=== PATIENT | female | born 1955 | race Caucasian/White ===

== ENCOUNTER → 2017-01-18 | Outpatient (CLI) | payer MEDICAID ==
[~2017-01-18] MED LIST: AMLODIPINE BESY10 M1 PO; ESTRADIOL1 M1 PO; FUROSEMIDE 40MG40 M1 PO; HYDROCODON-ACETAMINO PO; ISOSORBIDE MONO60 M1 PO; MELOXICAM15 MG PO; METOPROLOL SUCC25 M2 PO; NEXIUM40 MG PO; NITROGLYCERIN0.4 MG SL; OLANZAPINE5 M1 PO; OMEPRAZOLE20 MG PO; PREDNISONE 20MG20 MG PO; RANITIDINE300 MG PO; SERTRALINE 100100 MG PO; TRAZODONE HCL50 MG PO; TRIAMTERENE-HCTZ 37. PO; VENTOLIN H0.09 MG/Ac IH
[2017-01-18 14:19] LABS: HEMOGLOBIN 12.6 g/dL (12.2-16.2); LYMPH # 0.9 K/mm3 (0.7-4.5); LYMPH % 25.2 % (10-50.0)
[2017-01-18 14:33] LABS: BUN 8 mg/dL (7-18)
[2017-01-18 14:51] LABS: GFR (ESTIMATED) 73 ML/MIN (59-)
== END ==
LOC: CARL-LAB 08:21
PROVIDERS: Internal Medicine
DX: E11.42 Type 2 diabetes mellitus with diabetic polyneuropathy (principal); I10 Essential (primary) hypertension; I49.5 Sick sinus syndrome; E78.5 Hyperlipidemia, unspecified; E66.01 Morbid (severe) obesity due to excess calories; J44.9 Chronic obstructive pulmonary disease, unspecified

== ENCOUNTER 2017-08-23 11:09 | Emergency (ER) | payer MEDICAID ==
[~2017-08-23] VITALS: Ht 152.4 cm; Wt 95.3 kg
--- OUTSIDE RECORDS SUMMARY | 2017-08-23 11:15 | External Medical Summary Rpt | CCD ---
Demographics Home Phone Preferred Language Cymro Marital Status Unknown Presybeterian Affiliation Unknown Race Unknown Ethnic Group Unknown Author Author , ANGEL Organization ANGEL Address Unknown Phone [email or web address] Immunization Name Date Rout CVX Reac Dose Comm Prov Is Faci e tion ent ider Refu lity Give sed n Infl 08-2 Intr 140 0.5 Hist [facility] No WALM uenz 7-20 amus mL oric ART4 ART4 a, 16 cula al 93 93 P-Fr r Info ee rmat ion - Sour ce Unsp ecif ied
--- OUTSIDE RECORDS SUMMARY | 2017-08-23 11:15 | External Medical Summary Rpt | CCD ---
Author Author Conduent Organization Conduent Address Unknown Phone Unavailable Purpose Continuity of Care Document - through 2016
--- OUTSIDE RECORDS SUMMARY | 2017-08-23 11:15 | External Medical Summary Rpt | CCD ---
Author Author , ANGEL Organization MARISELOMAR Address Unknown Phone [email or web address] Care Team Providers Care Glass Tinter Name Role Phone Marques Gaytan MD, Unavailable Unavailable Marques Gaytan MD Purpose Continuity of Care Document - 11-05-2013 through 2016 Problems Code Diagnosis DOS Provider Status 305.1 305.1 11-05-2013 [place] TOBACCO USE [facility] 708.0 708.0 11-05-2013 [place] ALLERGIC [facility] Allergies, Adverse Reactions, Alerts Type Allergy to substance Drug Allergy Adverse Reaction to Substance Substance Reaction Severity PARAFORMFORTE Unknown Unknown Celecoxib I-HIVES Intermediate Cod Liver Oil [id number]/THROAT Severe Medications Na ND Rx Da Fi Fi Am Da Di Ph RX Ph St me C No te ll ll ou ys ag ar # ys at rm s nt no ma ic us Or Da si cy ia de te s n re d DI 00 02 0 No PH 40 -1 EN 92 7- Lo HY [address] 03 14 er AM 1 IN Ac E ti 50 ve MG /M L SY RN G De 00 02 0 No xa 51 -1 me 74 7- Lo th 90 20 ng as 12 14 er on 5 e Ac 4M ti G/ ve Ml Sd v Vital Signs 11-05-2013 21:02 Name Value Interpretat Reference Comment ion Range Body 98.4 [degF] Temperature BP 88 mm[Hg] Diastolic BP Systolic 155 mm[Hg] Heart 58 /min Rate/Pulse O2% 97 % Respiratory 20 /min Rate Encounters Encounter Start End Date Code Location Performer Type Date Emergency ABEL Gaytan MD (ER) 4 20:45 4 21:03 [facility]
--- OUTSIDE RECORDS SUMMARY | 2017-08-23 11:15 | External Medical Summary Rpt ---
Author Author MARISELOMAR Walker, ANGEL Production Organization ANGEL [employer] Address Unknown Phone Unavailable Results CBC W Auto Differential panel in Blood Observa Value Referen Units Interpr Notes Date tion ce etation Range Basophils 0 - 0.2 K/MM3 Normal No Mar 282016 [#/volume on in 10:08 AM ] in source Blood by data Automated count Basophils 0.1 - 2.0 % Normal No Mar 282016 leukocyte on in 10:08 AM s in source Blood by data Automated count Eosinophi 0.0 - 0.4 K/mm3 Normal No Mar 28 ls 2016 [#/volume on in 10:08 AM ] in source Blood by data Automated count Eosinophi 0.1 - % Normal No Mar 28 ls/100 12.0 2016 leukocyte on in 10:08 AM s in source Blood by data Automated count Granulocy 1.8 - 7.8 K/mm3 Normal No Mar 28 melissa 2016 [#/volume on in 10:08 AM ] in source Blood by data Automated count Granulocy 37.0 - % Normal No Mar 28 melissa/100 80.0 2016 leukocyte on in 10:08 AM s in source Blood by data Automated count Hematocri 37.0 - % Normal No Mar 28 t [Volume 47.0 2016 on in 10:08 AM Fraction] source of Blood data Hemoglobi 12.2 - g/dL Normal No Mar 28 n 16.2 2016 [Mass/vol on in 10:08 AM ume] in source Blood data Lymphocyt 0.7 - 4.5 K/mm3 Normal No Mar 28 es 2016 [#/volume on in 10:08 AM ] in source Unspecifi data ed specimen by Automated count Lymphocyt 10 - 50.0 % Normal No Mar 28 es 2016 [#/volume on in 10:08 AM ] in source Unspecifi data ed specimen by Automated count Erythrocy 27 - 31.2 pg Low No Mar 28 te mean 2016 corpuscul on in 10:08 AM ar source hemoglobi data n [Entitic mass] Erythrocy 31.8 - g/dl Low No Mar 28 te mean 35.4 2016 corpuscul on in 10:08 AM ar source hemoglobi data n concentra tion [Mass/vol ume] by Automated count Erythrocy 82.2 - fl Normal No Mar 28 te mean 97.8 2016 corpuscul on in 10:08 AM ar volume source [Entitic data volume] by Automated count Monocytes 0.1 - 1.0 K/mm3 Normal No Mar 28 inform2016 [#/volume on in 10:08 AM ] in source Blood by data Automated count Monocytes 1.7 - 9.3 % High No Mar 28 /2016 leukocyte on in 10:08 AM s in source Blood by data Automated count Platelet 7.4 - fl Normal No Mar 28 mean 10.4 2016 volume on in 10:08 AM [Entitic source volume] data in Blood by Automated count Platelets 142 - 424 K/mm3 Normal No Mar 28 informati 2016 [#/volume on in 10:08 AM ] in source Blood data Erythrocy 4.2 - 5.4 M/mm3 Normal No Mar 28 melissa informati 2016 [#/volume on in 10:08 AM ] in source Amniotic data fluid Erythrocy 11.5 - % Normal No Mar 28 te 17.5 2016 distribut on in 10:08 AM ion width source [Entitic data volume] by Automated count Leukocyte 4.8 - K/MM3 Normal No Mar 28 s 10.8 informati 2016 [#/volume on in 10:08 AM ] in source Blood data
--- OUTSIDE RECORDS SUMMARY | 2017-08-23 11:15 | External Medical Summary Rpt | CCD ---
Author Author , ANGEL Organization MARISELOMAR Address Unknown Phone [email or web address] Care Team Providers Care Supervisor Metal Placing Name Role Phone Marques Gaytan MD, Unavailable Unavailable Marques Gaytan MD Purpose Continuity of Care Document - 11-05-2013 through 2016 Problems Code Diagnosis DOS Provider Status 305.1 305.1 11-05-2013 [place] TOBACCO USE [facility] 708.0 708.0 11-05-2013 [place] ALLERGIC [facility] Allergies, Adverse Reactions, Alerts Type Allergy to substance Drug Allergy Adverse Reaction to Substance Substance Reaction Severity PARAFORMFORTE Unknown Unknown Celecoxib I-HIVES Intermediate Cod Liver Oil [id number]/THROAT Severe Medications Na ND Rx Da Fi [...] Gaytan MD (ER) 4 20:45 4 21:[address] [facility]
--- OUTSIDE RECORDS SUMMARY | 2017-08-23 11:15 | External Medical Summary Rpt | CCD ---
Demographics Home Phone Preferred Language Kuwaiti Marital Status Unknown Pentecostalism Affiliation Unknown Race Unknown Ethnic Group Unknown Author Author , ANGEL Organization ANGEL Address Unknown Phone [email or web address] Name Date Rout CVX Reac Dose Comm Prov Is Faci e tion ent ider Refu lity Give sed n Infl 08-2 Intr 140 0.5 Hist WALM No WALM uenz 7-20 amus mL oric ART4 ART4 a, 16 cula al 93 93 P-Fr r Info ee rmat ion - Sour ce Unsp ecif ied
--- NOTE | 2017-08-23 12:48 | Urgent Treatment Center Report ---
History of Present Issue Date/Time Seen by Provider 08/23/17 1243 Visit Reason Pt arrived:Walked Presenting Problem:FINISHED ANTIBIOTIC 2 DAYS AGO FOR BRONCHITIS, STILL HAS HEAD CONGESTION COUGH, SOA. Location if Accident: Onset of symptoms date/time:/ or onset unknown for:MEDICAL HX UNKNOWN Have you (or family members/close friends) recently traveled outside the [place]? N If Yes, where/when: Have you had exposure to infectious disease within the past month? TB? Other? Specify: c/o nasal congestion, rhinorrhea and productive cough. Saw Dr. Caputo. Not sure when. Prescribed antibiotic, not sure which, but hasn't noticed improvement. Demanding something else be done. Hasn't taken or tried anything other than antibiotic. Hx of HTN and DM. Doesn't know medications. [facility]. Amoxicillin 500mg capsules x2 BID x 10 days sent on . Source patient Exam Limitations no limitations ALLERGIES Coded Allergies: chlorzoxazone (From Parafon Forte DSC) (Severe, CHEST PAIN 01/02/16) cod liver oil (Severe, S-SAWOZK-CFQJ/THROAT 01/02/16) codeine (Severe, S-ANAPHYLAXIS 01/02/16) tramadol (From Ultram) (Severe, U-WQYGEO-LMHD/THROAT, HIVES 01/02/16) celecoxib (From Celebrex) (Intermediate, I-HIVES 01/02/16) Home Medications Reported Medications Estradiol 1 MG PO DAILY #30 Isosorbide Mononitrate (Isosorbide Mononitrate ER) 60 MG PO #30 Sertraline Hydrochloride (Sertraline 100MG) 100 MG PO DAILY Ranitidine Hydrochloride (Ranitidine) 300 MG PO DAILY #30 Metoprolol Succinate 25 MG PO DAILY #15 Amlodipine Besylate 10 MG PO DAILY Trazodone Hcl 50 MG PO QHSP #45 Furosemide 40 MG PO PRN PRN NEEDED FOR FLUID RETENTION #30 Meloxicam (Meloxicam 15MG) 15 MG PO BID #30 [HYDROCODON-ACETAMINO] 1 TAB PO TID #60 Albuterol Sulfate (Ventolin Hfa) 0.09 MG IH PRN PRN SHORTNESS OF AIR #18 NITROGLYCERIN (Nitrostat) 0.4 MG SL [id number] PRN CHEST PAIN Olanzapine 5 MG PO DAILY #30 Esomeprazole Magnesium (Nexium 40MG Cap) 40 MG PO DAILY #30 History Medical History General Angina: Yes [place]: Yes Hypertension? Yes Hyperlipidemia? Yes CHF? No COPD? No Asthma? Yes Hernia? No CVA? No Seizures? No Diabetes? Yes Insulin Dependent: No Insulin Pump: No Home FSBS? Yes UTI? No Stones? No GB Disease: Yes Hepatitis? Yes Cataracts? No Glaucoma? No MRSA? No TB? No Cancer? No More? No Immunization HX DT/Tetanus Unknown Flu [id number] Pneumonia RCVDINPAST Surgical Hx Previous Surgery?Y GALLBLADDER HYSTERECTOMY TONSILS LEFT ANKLE SURGERY Family History Family HX Diabetes Yes CAD Yes Hypertension Yes Hyperlipidemia Yes Cancer Yes TB No Social History Smoking Hx Smoker: Current Some Day Smoker Tobacco: Yes Type Cigarettes Packs/day < 1 Pack Alcohol Alcohol: No Review of Systems All Other Systems Reviewed and Negative Constitutional denies chills, denies fever, denies malaise Eyes denies drainage ENT nose discharge (thick). denies: ear pain, throat pain. Respiratory see HPI, denies wheezing Cardiovascular denies chest pain Musculoskeletal denies joint pain Skin denies rash Psychiatric/Neurological denies headache Physical Exam Vital Signs Vital Signs Date Time Temp Pulse Resp B/P Pulse O2 O2 Flow FiO2 Ox Delivery Rate 08/23 1149 97.9 60 20 165/64 98 General Appearance no apparent distress, obese Eye Exam - bilateral eye normal exam Ear, Nose, Throat normal ENT inspection Neck non-tender, supple Respiratory Status No: respiratory distress, use of accessory muscles, pain on inspiration, pain on expiration, productive cough, non productive cough. Lung Sounds anterior: lungs clear. posterior: lungs clear. bilateral: lungs clear. Cardiovascular regular rate/rhythm, no murmur, 2+ pitting edema cathleen feet, ankles Neurologic alert, oriented x 3 Skin normal color, warm/dry Lymphatic no adenopathy Medical Decision Making LABS/Meds/Orders Pt receiving controlled substance in ED? No Results/Orders Orders Procedure Date/time Status CHEST(2 VIEWS-NOT PORTABLE) 08/23 1247 Active XRAY/CT/US XRAY/CT/US XRAY chest XR interpretation by reviewed by me, discussed w/radiologist (via phone) Xray Results comparison December 2015; mild CHF, appears chronic, no acute findings Progress [facility] Progress Notes 1 Date 08/23/17 Time 1240 Comment pt demanding cxr, "I need something done today" [facility] Progress Notes 2 Date 08/23/17 Time 1334 Comment as pt was leaving, reports her swelling "a little worse" for the last week. Contributes it to not taking her fluid pill while running her son to all his appointments. "I have been neglecting myself to take care of him". mild SOA "but not that much". I just need to stop coughing". STRONGLY enc to follow up with Dr. Caputo and plans to call tomorrow "although I know he will kill me for not taking my medicines correctly" Departure Departure Time of Disposition 1327 Disposition DC Home or Self Care(routine) Clinical Impression Primary Impression: Cough Condition STABLE Referrals Harshal JULIO,Kimo Gomez (Family) Follow up for new or worsening symptoms. Return immediately for difficulty breathing. Patient Instructions DI for Cough -- Adult Additional Instructions sleep elevated Humidifier/vaporizer flonase 2 sprays each nostril daily Mucinex during the day for your cough and cough suppressant only at night. Be sure to drink lots of water. Insurance may not cover a prescription of mucinex. Might be cheaper to get 400mg tablets and take 2 tablets morning, midday and evening all with lots of water. tessalon perles at night as needed for cough Discharge Counseling Counseled pt/family regarding diagnosis, test results, medications/RX, home care, follow up needs Prescriptions Current Visit Scripts Benzonatate 200 MG PO QHSP PRN cough #14 SGL Fluticasone Propionate (Flonase 50 Mcg Nasal [place]) 2 SPRAY NA DAILY #1 BOT at 1333
--- NOTE | 2017-08-23 12:48 | Urgent Treatment Center Report ---
History of Present Issue Date/Time Seen by Provider 08/23/17 1243 Visit Reason Pt arrived:Walked Presenting Problem:FINISHED ANTIBIOTIC 2 DAYS AGO FOR BRONCHITIS, STILL HAS HEAD CONGESTION COUGH, SOA. Location if Accident: Onset of symptoms date/time:/ or onset unknown for:MEDICAL HX UNKNOWN Have you (or family members/close friends) recently traveled outside the [place]? N If Yes, where/when: Have you had exposure to infectious disease within the past month? TB? Other? Specify: c/o nasal congestion, rhinorrhea and productive cough. Saw Dr. Caputo. Not sure when. Prescribed antibiotic, not sure which, but hasn't noticed improvement. Demanding something else be done. Hasn't taken or tried anything other than antibiotic. Hx of HTN and DM. Doesn't know medications. [facility]. Amoxicillin 500mg capsules x2 BID x 10 days sent on . Source patient Exam Limitations no limitations ALLERGIES Coded Allergies: chlorzoxazone (From Parafon Forte DSC) (Severe, CHEST PAIN 01/02/16) cod liver oil (Severe, T-EZRLWC-YTRJ/THROAT 01/02/16) codeine (Severe, S-ANAPHYLAXIS 01/02/16) tramadol (From Ultram) (Severe, K-INCCIS-RGGQ/THROAT, HIVES 01/02/16) celecoxib (From Celebrex) (Intermediate, I-HIVES 01/02/16) Home Medications Reported Medications Estradiol 1 MG PO DAILY #30 Isosorbide Mononitrate (Isosorbide Mononitrate ER) 60 MG PO #30 Sertraline Hydrochloride (Sertraline 100MG) 100 MG PO DAILY Ranitidine Hydrochloride (Ranitidine) 300 MG PO DAILY #30 Metoprolol Succinate 25 MG PO DAILY #15 Amlodipine Besylate 10 MG PO DAILY Trazodone Hcl 50 MG PO QHSP #45 Furosemide 40 MG PO PRN PRN NEEDED FOR FLUID RETENTION #30 Meloxicam (Meloxicam 15MG) 15 MG PO BID #30 [HYDROCODON-ACETAMINO] 1 TAB PO TID #60 Albuterol Sulfate (Ventolin Hfa) 0.09 MG IH PRN PRN SHORTNESS OF AIR #18 NITROGLYCERIN (Nitrostat) 0.4 MG SL [id number] PRN CHEST PAIN Olanzapine 5 MG PO DAILY #30 Esomeprazole Magnesium (Nexium 40MG Cap) 40 MG PO DAILY #30 History Medical History General Angina: Yes [place]: Yes Hypertension? Yes Hyperlipidemia? Yes CHF? No COPD? No Asthma? Yes Hernia? No CVA? No Seizures? No Diabetes? Yes Insulin Dependent: No Insulin Pump: No Home FSBS? Yes UTI? No Stones? No GB Disease: Yes Hepatitis? Yes Cataracts? No Glaucoma? No MRSA? No TB? No Cancer? No More? No Immunization HX DT/Tetanus Unknown Flu [id number] Pneumonia RCVDINPAST Surgical Hx Previous Surgery?Y GALLBLADDER HYSTERECTOMY TONSILS LEFT ANKLE SURGERY Family History Family HX Diabetes Yes CAD Yes Hypertension Yes Hyperlipidemia Yes Cancer Yes TB No Social History Smoking Hx Smoker: Current Some Day Smoker Tobacco: Yes Type Cigarettes Packs/day < 1 Pack Alcohol Alcohol: No Review of Systems All Other Systems Reviewed and Negative Constitutional denies chills, denies fever, denies malaise Eyes denies drainage ENT nose discharge (thick). denies: ear pain, throat pain. Respiratory see HPI, denies wheezing Cardiovascular denies chest pain Musculoskeletal denies joint pain Skin denies rash Psychiatric/Neurological denies headache Physical Exam Vital Signs Vital Signs Date Time Temp Pulse Resp B/P Pulse O2 O2 Flow FiO2 Ox Delivery Rate 08/23 1149 97.9 60 20 165/64 98 General Appearance no apparent distress, obese Eye Exam - bilateral eye normal exam Ear, Nose, Throat normal ENT inspection Neck non-tender, supple Respiratory Status No: respiratory distress, use of accessory muscles, pain on inspiration, pain on expiration, productive cough, non productive cough. Lung Sounds anterior: lungs clear. posterior: lungs clear. bilateral: lungs clear. Cardiovascular regular rate/rhythm, no murmur, 2+ pitting edema cathleen feet, ankles Neurologic alert, oriented x 3 Skin normal color, warm/dry Lymphatic no adenopathy Medical Decision Making LABS/Meds/Orders Pt receiving controlled substance in ED? No Results/Orders Orders Procedure Date/time Status CHEST(2 VIEWS-NOT PORTABLE) 08/23 1247 Active XRAY/CT/US XRAY/CT/US XRAY chest XR interpretation by reviewed by me, discussed w/radiologist (via phone) Xray Results comparison December 2015; mild CHF, appears chronic, no acute findings Progress [facility] Progress Notes 1 Date 08/23/17 Time 1240 Comment pt demanding cxr, "I need something done today" [facility] Progress Notes 2 Date 08/23/17 Time 1334 Comment as pt was leaving, reports her swelling "a little worse" for the last week. Contributes it to not taking her fluid pill while running her son to all his appointments. "I have been neglecting myself to take care of him". mild SOA "but not that much". I just need to stop coughing". STRONGLY enc to follow up with Dr. Caputo and plans to call tomorrow "although I know he will kill me for not taking my medicines correctly" Departure Departure Time of Disposition 1327 Disposition DC Home or Self Care(routine) Clinical Impression Primary Impression: Cough Condition STABLE Referrals Harshal JULIO,Kimo Gomez (Family) Follow up for new or worsening symptoms. Return immediately for difficulty breathing. Patient Instructions DI for Cough -- Adult Additional Instructions sleep elevated Humidifier/vaporizer flonase 2 sprays each nostril daily Mucinex during the day for your cough and cough suppressant only at night. Be sure to drink lots of water. Insurance may not cover a prescription of mucinex. Might be cheaper to get 400mg tablets and take 2 tablets morning, midday and evening all with lots of water. tessalon perles at night as needed for cough Discharge Counseling Counseled pt/family regarding diagnosis, test results, medications/RX, home care, follow up needs Prescriptions Current Visit Scripts Benzonatate 200 MG PO QHSP PRN cough #14 SGL Fluticasone Propionate (Flonase 50 Mcg Nasal [place]) 2 SPRAY NA DAILY #1 BOT at 1335
[2017-08-23] MEDS ORDERED: FLONASE 50 MCG16 GM (13:29)
[2017-08-23] MEDS ORDERED: BENZONATATE200 MG PO (13:29)
--- NOTE | 2017-08-23 13:35 | RADIOLOGY REPORT PS360 ---
CHEST(2 VIEWS-NOT PORTABLE) HISTORY: CONGESTION ORDERING PHYSICIAN: YENNI KIDD APRN PATIENT AGE: 62 years COMPARISON: 01/06/2016 FINDINGS: There is mild cardiomegaly with mild pulmonary venous congestion. Bipolar pacemaker is present. There are pericardial fat pads present. Calcified granuloma is present in the right lower lobe. No interstitial edema or pleural effusions. No acute bony findings. IMPRESSION: 1. Mild CHF. 2. Otherwise negative
[2017-08-23 13:37] VITALS: BP 165/64
== END 2017-08-23 13:38 | disposition home or self-care (01) ==
LOC: UTC 11:09
DX: R05 Cough (principal); R06.02 Shortness of breath; I10 Essential (primary) hypertension; E78.5 Hyperlipidemia, unspecified; R19.7 Diarrhea, unspecified; E11.9 Type 2 diabetes mellitus without complications; F17.210 Nicotine dependence, cigarettes, uncomplicated

== ENCOUNTER → 2017-09-02 | Outpatient (CLI) | payer MEDICAID ==
[~2017-09-02] MED LIST changes: +BENZONATATE200 MG PO; +FLONASE 50 MCG16 GM
[2017-09-02 16:08] LABS: BUN 14 mg/dL (7-18)
[2017-09-02 16:56] LABS: GFR (ESTIMATED) 56 ML/MIN (59-)
[2017-09-03 08:39] LABS: Creatinine, Urine 215.4 mg/dL (Not Estab.); Microalbumin, Urine 9.5 ug/mL (Not Estab.)
== END ==
LOC: CARL-LAB 09:52
PROVIDERS: Internal Medicine
DX: E11.42 Type 2 diabetes mellitus with diabetic polyneuropathy (principal); E78.5 Hyperlipidemia, unspecified; E03.9 Hypothyroidism, unspecified; I10 Essential (primary) hypertension